=== PATIENT | female | born 2005 | race Caucasian/White ===

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

== ENCOUNTER 2025-01-12 22:30 | Emergency (ER) | payer BC, OTHER ==
[2025-01-12 22:34] VITALS: BP 128/80; PULSE 78; RESP 18; TEMP 98.2
--- NOTE | 2025-01-12 23:18 | ED ---
Female Urogenital HPI - General Chief complaint: Urogenital Stated complaint: urogenital Time Seen by Provider: 01/12/25 22:58 Source: patient, RN notes reviewed Mode of arrival: ambulatory Limitations: no limitations - History of Present Illness Initial comments: This is a 19-year-old female who presents to the emergency department for concerns of a vaginal yeast infection. States that she has had vaginal itching and swelling for the last couple of days. She saw her primary care provider today, however they did not do a pelvic exam as she was concerned because she is on her period. States that they prescribed her with Diflucan, which she took a dose of earlier today. However, states that the itching seems to be getting worse. She has had yeast infections before, but cannot remember what they felt like. States that she is agreeable to an exam now to make sure it is not anything else causing her symptoms. Denies any burning with urination or other urinary symptoms. Denies any concern for STD exposure. - Related Data Home Medications Medication Instructions Recorded Confirmed FLUoxetine HCL 40 mg PO DAILY 11/09/24 11/09/24 Lisdexamfetamine Dimesylate 50 mg PO DAILY 11/09/24 11/09/24 [Vyvanse] Allergies Allergy/AdvReac Type Severity Reaction Status Date / Time No Known Allergies Allergy Verified 01/12/25 22:34 Review of Systems ROS Statement: Those systems with pertinent positive or pertinent negative responses have been documented in the HPI. ROS Other: All systems not noted in ROS Statement are negative. Past Medical History Past Medical History: Asthma History of Any Multi-Drug Resistant Organisms: None Reported Past Surgical History: Unable to Obtain Past Anesthesia/Blood Transfusion Reactions: No Reported Reaction Past Psychological History: ADD/ADHD, Anxiety, Depression Smoking Status: Never smoker Past Drug Use History: None Reported - Past Family History Father Additional Family Medical History / Comment(s): snoring Mother Additional Family Medical History / Comment(s): Mental illness General Exam Limitations: no limitations General appearance: alert, in no apparent distress Head exam: Present: atraumatic, normocephalic, normal inspection Respiratory exam: Present: normal lung sounds bilaterally. Absent: respiratory distress, wheezes, rales, rhonchi, stridor Cardiovascular Exam: Present: regular rate, normal rhythm External exam: Present: other (Mild vulvovaginal swelling and erythema) Neurological exam: Present: alert, oriented X3, CN II-XII intact Psychiatric exam: Present: normal affect, normal mood Course Vital Signs 01/12/25 22:31 Temperature 98.2 F Pulse Rate 78 Respiratory 18 Rate Blood Pressure 128/80 O2 Sat by Pulse 98 Oximetry Medical Decision Making - Medical Decision Making This is a 19-year-old female who presents to the emergency department for vaginal itching. Was pt. sent in by a medical professional or institution? @ -No Did you speak to anyone other than the patient for history? @ -No Did you review nursing and triage notes? @ -Yes, and I agree, it is accurate with regards to the patient's symptoms. Were old charts reviewed? @ -No Differential Diagnosis? @ -Yeast infection, BV, STI, UTI, this is not meant to be an all-inclusive list. EKG interpreted by me (3pts min.)? @ -Not obtained X-rays interpreted by me (1pt min.)? @ -Not obtained CT interpreted by me (1pt min.)? @ -Not obtained U/S interpreted by me (1pt. min.)? @ -Not obtained What testing was considered but not performed? (CT, X-rays, U/S, labs)? Why? @ -None What meds were considered but not given? Why? @ -None Did you discuss the management of the patient with other professionals? @ -No Did you reconcile home meds? @ -No Was smoking cessation discussed for >3mins.? @ -No Was critical care preformed (if so, how long)? @ -No Were there social determinants of health that impacted care today? How? (Homelessness, low income, unemployed, alcoholism, drug addiction, transportation, low edu. Level, literacy, decrease access to med. care, retirement, rehab)? @ -No Was there de-escalation of care discussed even if they declined? (Discuss DNR or withdrawal of care, Hospice)? @ -No What co-morbidities impacted this encounter? (DM, HTN, Smoking, COPD, CAD, Cancer, CVA, Hep., AIDS, mental health diagnosis, sleep apnea, morbid obesity)? @ -None Was patient admitted / discharged? @ -Discharged. She had minor inflammation of the vulva on exam. Given the itching advised that this likely is a yeast infection. Given that the Diflucan was not helpful advised that we can try a cream in conjunction with this. She was sent home with terconazole cream to apply each night for the next 3 days. Advised repeating the Diflucan dose as prescribed in 72 hours. We also discussed [id number] antihistamines. Patient discharged home in stable condition. Case discussed with ED attending Dr. Chaudhry. Return precautions reviewed in depth, the patient is instructed to return to the emergency department with any new, worsening, or concerning symptoms. Patient verbalized understanding. Undiagnosed new problem with uncertain prognosis? @ -None Drug Therapy requiring intensive monitoring for toxicity (Heparin, Nitro, Insulin, Cardizem)? @ -None Were any procedures done? @ -None Diagnosis/symptom? @ -Vulvovaginal candidiasis Acute, or Chronic, or Acute on Chronic? @ -Acute Uncomplicated (without systemic symptoms) or Complicated (systemic symptoms)? @ -Uncomplicated Side effects of treatment? @ -None Exacerbation, Progression, or Severe Exacerbation] @ -Not applicable Poses a threat to life or bodily function? @ -No Disposition Clinical Impression: Vulvovaginal candidiasis Disposition: HOME SELF-CARE Instructions (If sedation given, give patient instructions): Yeast Infection (ED) Additional Instructions: Return to the emergency department with any new, worsening, or concerning symptoms. Apply the terconazole cream provided vaginally each night for the next 3 nights. Take the Diflucan in the next couple of days as prescribed as well. Follow up with your primary care provider in 1-2 days. Is patient prescribed a controlled substance at d/c from ED?: No Referrals: Chiqui Brock NPC [Primary Care Provider] - 1-2 days Time of Disposition: 23:17
[2025-01-12] MEDS: TERCONAZOLE 0.8% VAGINAL CREAM 20 GM TUBE VAGINAL STA (23:26)
== END 2025-01-12 23:26 | disposition home or self-care (01) ==
LOC: EC 22:30
DX: B37.31 Acute candidiasis of vulva and vagina (principal)
CPT/HCPCS: 99283